=== PATIENT | female | born 1990 | race Caucasian/White ===

== ENCOUNTER 2020-02-16 23:08 | Emergency (ER) | payer SELFPAY ==
[~2020-02-16] VITALS: Ht 160 cm; Wt 95.5 kg
[2020-02-16 23:14] VITALS: TEMP 98.3
[2020-02-16 23:25] LABS: HEMOGLOBIN 15.1 g/dl (12.5-16.0); MEAN CELL VOLUME 82 fl (80.0-100.0); MEAN CORPUSCULAR HEMOGLOBIN 28 pg (27.0-31.0); MEAN CORPUSCULAR HGB CONC 34 g/dl (33.0-37.0); MEAN PLATELET VOLUME 9.6 fl (7.4-10.4); PLATELET COUNT 299 K/mm3 (130-400); RED BLOOD COUNT 5.46 M/mm3 (4.10-5.30); REDCELL DISTRIBUTION WIDTH-CV 13.6 % (11.5-14.5)
[2020-02-16 23:32] LABS: ALANINE AMINOTRANSFERASE 27 U/L (4-34); ALBUMIN 5.1 gm/dL (3.5-5.0); ALCOHOL(ethanol),MEDICAL 185 mg/dL; ALKALINE PHOSPHATASE 111 U/L (50-136); ANION GAP 14 mmol/L (7-16); AST,SGOT 31 U/L (15-37); BILIRUBIN,TOTAL 0.5 mg/dL (0.0-1.0); BLOOD UREA NITROGEN 8 mg/dL (7-17); CALCIUM 9.7 mg/dL (8.4-10.2); CARBON DIOXIDE 22 mmol/L (22-30); CHLORIDE 102 mmol/L (98-107); GLUCOSE 124 mg/dL (74-106); POTASSIUM 3.5 mmol/L (3.4-5.0); SODIUM 139 mmol/L (137-145); TOTAL PROTEIN 9.2 gm/dL (6.4-8.2)
[2020-02-16 23:45] LABS: ACETAMINOPHEN < 10 ug/mL (10-30); BAND 2 % (0-10); LYMPHOCYTE 36 % (20.0-51.0); NEUTROPHILS 56 % (42.0-75.2); PLATELET ESTIMATE NORMAL (NORMAL); SALICYLATE < 1.0 mg/dL; TROPONIN-I < 0.012 ng/mL (0.000-0.035)
[2020-02-17 00:04] LABS: COLLECTION METHOD CLEAN CATCH
[2020-02-17 00:10] LABS: PH 7 (5-8); SQUAMOUS EPITHELIAL 0-2 /hpf; URINE APPEARANCE Clear; URINE BACTERIA None Seen /hpf; URINE BILIRUBIN Negative (NEGATIVE); URINE BLOOD Negative (NEGATIVE); URINE COLOR Straw; URINE GLUCOSE Negative (NEGATIVE); URINE KETONE Negative (NEGATIVE); URINE LEUKOCYTE ESTERASE Negative (NEGATIVE); URINE NITRATE Negative (NEGATIVE); URINE PROTEIN(semi-quant) Negative (NEGATIVE); URINE RBC None Seen /hpf; URINE UROBILINOGEN Negative (NEGATIVE)
[2020-02-17 00:17] LABS: TRICYCLIC ANTIDEPRESS URINE NEGATIVE
[2020-02-17 06:51] VITALS: BP 131/77; PULSE 90
== END 2020-02-17 10:40 | disposition home or self-care (01) ==
LOC: EDBD 23:08 → COL.ER 23:08
PROVIDERS: Emergency Medicine
DX: F10.129 Alcohol abuse with intoxication, unspecified (principal); F12.10 Cannabis abuse, uncomplicated; F32.9 Major depressive disorder, single episode, unspecified; Z88.0 Allergy status to penicillin; Y90.6 Blood alcohol level of 120-199 mg/100 ml
CPT/HCPCS: J2060; J7030

== ENCOUNTER 2024-02-07 16:09 | Observation (INO) | payer OTHER ==
[2024-02-08] MEDS ORDERED: dexAMETHasone 10 MG/ML VIAL ONE (16:46)
[2024-02-08] MEDS ORDERED: NS 10 ML IV ONE (16:46)
[2024-02-08] MEDS ORDERED: fentaNYL 50 MCG/ML 2 ML VIAL ONE (16:46)
[2024-02-08] MEDS ORDERED: Ondansetron 4 MG/2 ML VIAL ONE (16:46)
[2024-02-08] MEDS ORDERED: Rocuronium 50 MG/5 ML Multi-Dose VIAL ONE (16:46)
[2024-02-08] MEDS ORDERED: Phenylephrine 10 MG/ML VIAL ONE (19:26)
[2024-02-08] MEDS ORDERED: NS 100 ML IV ONE (19:26)
[2024-02-08] MEDS ORDERED: ePHEDrine 50 MG/ML VIAL ONE (19:30)
== END 2024-02-09 14:20 | disposition home or self-care (01) ==
LOC: EDSTATUS 16:09 → COL.ER 18:50 → SURG 18:50
PROVIDERS: ADMIT Surgery
DX: K80.12 Calculus of gallbladder with acute and chronic cholecystitis without obstruction (principal)
CPT/HCPCS: G0378; G0379; J0690; J1100; J2371; J2405; J2704; J3010